=== PATIENT | female | born 2000 | race Caucasian/White ===

== ENCOUNTER 2022-12-30 22:26 | Outpatient (RCR) | payer OTHER, MEDICAID, SELFPAY ==
[2022-12-30 22:37] VITALS: BP 134/75; PULSE 80
[2022-12-30 22:46] VITALS: BP 123/64; PULSE 80
[2022-12-30 23:45] VITALS: BP 123/64; PULSE 80
== END 2023-03-13 12:50 | disposition home or self-care (01) ==
LOC: ANHLDR 22:26
PROVIDERS: PCP Pediatrics; Visit Provider Obstetrics & Gynecology
DX: O99.323 Drug use complicating pregnancy, third trimester (principal); F14.120 Cocaine abuse with intoxication, uncomplicated; Z3A.38 38 weeks gestation of pregnancy
CPT/HCPCS: 59025

== ENCOUNTER 2023-01-12 22:08 | Inpatient (IN) | payer OTHER, MEDICAID, SELFPAY ==
[2023-01-12] VITALS (19 sets, daily range): BP systolic 125–151; BP diastolic 59–101; PULSE 59–140; RESP 18; TEMP 36.6; O2SAT 73–100; BMI 30.9
--- NOTE | 2023-01-12 22:25 | LDADM ---
This patient, Resmha Stephen, was admitted to Labor/Delivery/Recovery 106 on 01/12/23 at 22:08. Plans for labor, pain management and were discussed with patient. Patient/family oriented to hospital policies and general routines including ID bracelet, bed and alarms, visiting hours, pain management, procedures, bathroom and other care routines, personal items, smoking policy, room service/diet and guest tray routines, infant security routines, and visiting hours. Patient/Family are encouraged to report perceived risks to care and to ask questions if they do not understand what they are told or what they should do. See OBIX for further documentation.
[2023-01-12] MEDS: LACTATED RINGERS 1,000 ML 125 ML IV CONT (22:28)
--- NOTE | 2023-01-12 22:29 | WPDHPUPDATE1 ---
History and Physical Update Update Date/Time: 01/12/23 22:29 A 22-year-old 1 at 40 weeks gestation with cocaine abuse concerns. She has tested positive at each visit. She presents in the 1st stage of labor at 9 cm dilation. There is reassuring heart tones. Was 0 continue with expected management, no time for epidural, head is low. History and Physical has been reviewed, including an updated exam of the patient. There are NO changes in the patient's condition. Risks, benefits, and alternatives have been discussed and questions answered. Patient agrees to proceed with procedure.
[2023-01-12 22:47] LABS: Basophils Percent Auto 0.2 % (0.2-1.2); Eosinophils Percent Auto 0.1 % (0-4.4); Hematocrit 31.5 % (37.0-47.0); Immature Granulocyte Absolute 0.06 K/mm3 (0.00-0.031); Immature Granulocyte Percent A 0.5 % (0-0.5); Lymphocytes Absolute Auto 1.32 K/mm3 (0.9-3.2); Lymphocytes Percent Auto 10.2 % (18.3-44.2); Mean Corpuscular HGB Conc 31.7 g/dl (32-36); Mean Corpuscular Hemoglobin 24.3 pg (26-34); Mean Corpuscular Volume 76.5 fl (80-100); Mean Platelet Volume 9.5 fl (7.4-10.4); Monocytes Absolute Auto 0.3 K/mm3 (0.1-0.6); Monocytes Percent Auto 2.5 % (2.6-8.5); Neutrophils Absolute Auto 11.2 K/mm3 (1.3-6.7); Neutrophils Percent Auto 86.5 % (45.5-73.1); Platelet Count Result 262 k/mm3 (150-375); Red Blood Count 4.12 M/mm3 (4.2-5.4); Red Cell Distribution Width 16.8 % (11.5-14.5)
[2023-01-12] MEDS: OXYTOCIN 30 UNITS/NS 500 ML 30 UNITS/500 ML BAG 999 UNITS IV CONT (23:30)
--- NOTE | 2023-01-12 23:38 | PM.OBPRVD ---
OB - Delivery Note Procedure Delivery date: 01/12/23 Procedure: Induction method: None Delivery augmentation: Rupture of Membranes Delivery monitor: External FHT and External Uterine Route of delivery: Episiotomy description: None Laceration Description: Vaginal ( 1st degree, small, 1 cm) Delivery repair: vicryl Specimen: Yes Quantitative Blood Loss (ml): 200 Anesthesia type: None Baby Date of : 01/12/23 Time of : 23:25 Weeks of gestation at delivery: 40 Infant gender: Female Weight (pounds): 7 Weight (ounces): 3 presentation: vertex Placenta delivery description: Spontaneous score one minute: 8 score five minutes: 9
[2023-01-12 23:45] LABS: Amphetamine Screen Urine Negative (Negative); Barbiturate Screen Urine Negative (Negative); Benzodiazepines Screen Urine Negative (Negative); Cannabinoid Screen Urine Negative (Negative); Cocaine Screen Urine Positive (Negative); Methadone Screen Urine Negative (Negative); Opiate Screen Urine Negative (Negative); Phencyclidine Screen Urine Negative (Negative)
[2023-01-13] VITALS (34 sets, daily range): BP systolic 92–141; BP diastolic 43–95; PULSE 55–141; RESP 16–18; TEMP 36.5–37.2; O2SAT 80–100
[2023-01-13] MEDS: OXYTOCIN 30 UNITS/NS 500 ML 30 UNITS/500 ML BAG 125 UNITS IV CONT (00:03)
[2023-01-13] MEDS: IBUPROFEN 600 MG TABLET PO ×3 (01:02→19:50)
[2023-01-13] MEDS: WITCH HAZEL 40 PADS 1 PAD TOPICAL (01:03)
[2023-01-13] MEDS: BENZOCAINE 20% AER SPR (*SP) 56 GM CAN 1 SPRAY TOPICAL (01:03)
--- NOTE | 2023-01-13 02:09 | PC.NURSE ---
Pt admits to using cocaine in the last 72 hours, states she and FOB have been staying in a hotel and don't have housing. [facility] they plan on moving in with FOB parents. [facility] she does not have a job and worries often about having money for food. [facility] she does get link card but was denied money for housing due to insufficient funding on the [facility] end. [facility] she missed her OB appointment because she didn't have transportation. [facility] she knows she messed up but wants to change for the baby. [facility] she has been clean for 2 weeks before but relapsed. [facility] she does not have a good relationship with her mother due to her mother knowing about the cocaine usage. Father of the patient called hospital x2 stating he was on drugs himself and demanding information on his daughter and granddaughter, no information was given.
[2023-01-13 05:54] LABS: Hematocrit 25.2 % (37.0-47.0); Hemoglobin 8.1 g/dL (12.0-15.0)
--- NOTE | 2023-01-13 07:30 | P.PNOB_ITS ---
OB - PN: Subj Subjective Date/time seen: 01/13/23 07:30 Patient comments: no complaints, pain well controlled, incisional pain, tolerating diet and flatus present OB - PN: Obj Data Labs 01/13/23 05:41 Labs: Laboratory Results - last 24 hr 01/12/23 01/12/23 01/13/23 22:27 23:21 05:41 WBC 13.0 H RBC 4.12 L Hgb 10.0 L 8.1 L Hct 31.5 L 25.2 L MCV 76.5 L MCH 24.3 L MCHC 31.7 L RDW 16.8 H Plt Count 262 MPV 9.5 Immature Gran % (Auto) 0.5 Neut % (Auto) 86.5 H Lymph % (Auto) 10.2 L [place] % (Auto) 2.5 L Eos % (Auto) 0.1 Baso % (Auto) 0.2 Lymph # (Auto) 1.32 [place] # (Auto) 0.3 Eos # (Auto) 0.0 Baso # (Auto) 0.0 Abs Immat Gran (auto) 0.06 H Absolute Neuts (auto) 11.2 H Absolute Nucleated RBC 0.0 Nucleated RBC % 0.0 Urine Opiates Screen Negative Urine Methadone Screen Negative Ur Barbiturates Screen Negative Ur Phencyclidine Scrn Negative Ur Amphetamine Screen Negative U Benzodiazepines Scrn Negative Urine Cocaine Screen Positive A U Cannabinoids Screen Negative Blood Type A Positive Antibody Screen Negative OB - PN A/P Plan day: 1 Plan: routine care Comments: No problems, routine care Time Spent With Patient Time: Total time spent is greater than 50% in coordination of care (as documented) at patient's floor/unit and/or counseling patient: Exam Const: General: comfortable, no acute distress and alert Resp: Effort & Inspection: normal respiratory effort Auscultation: no crackles, no rales and no rhonchi Cardio: Rate: regular rate Heart sounds: no click, no murmurs and no rubs GI: Inspection: non-distended GI Palp: No Tenderness to palpation present (GI) Auscultation: normal bowel sounds Other: Incision - CDI Extrem: General: normal to inspection, no pedal edema and no calf tenderness
[2023-01-13] MEDS: DOCUSATE SODIUM 100 MG CAPSULE PO (08:19)
[2023-01-13] MEDS: POLYSACCHARIDE IRON COMPLEX 150 MG CAPSULE PO ×2 (08:19→16:59)
--- NOTE | 2023-01-13 11:30 | PCCCNOTE ---
Addendum entered by Diana Bunch, [facility] 01/25/23 08:37: CC faxed umbilical cord drug screen results to [facility] at [phone]. Addendum entered by Diana Bunch, [facility] 01/17/23 08:45: Baby is ready for discharge, per JODI Palumbo. Spoke with DCFS worker Julio Cesar who reports will come to hospital this morning. Julio Cesar reports pt's mother Bess will take temporary custody of baby. JODI shen. Addendum entered by Diana Bunch, [facility] 01/13/23 13:15: DCFS worker, Julio Cesar Barkley [phone], reports will follow up with pt. at bedside this afternoon. JODI shen. Addendum entered by Daina Bunch, [facility] 01/13/23 12:15: Recvd email from [facility]: Your information has been reviewed and assessed by a Material Scheduler. A child abuse/neglect investigation will be initiated as a result of the information you provided. An Tow Motor Driver will make an attempt to see and assess the child(donny) within the next 24 hours. JODI shen. Original Note: Recvd consult for no housing, no job, and drug use. Met with pt. and pt's FOIsmael Davison at bedside. Pt. tested + during UDS for cocaine. Pt. reports started using cocaine when her dog in July 2022. Pt. reports using from time to time. Baby's UDS also + for cocaine. Baby's umbilical cord screening is pending. Pt. reports she and Saman both lost their jobs and due to no income, they lost their rental. They have been staying in a local hotel during . 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 Pt. reports she, baby, and FOB will be staying with FOB's parents in [place], but does not know the address of their home. FOB sleeping and pt. declined to wake him up to ask him. Pt. reports has necessary baby supplies, already established with [facility] [employer] [place], and states FOB's parents will be supportive. Pt. denies prior [facility] involvement. Housing resources x2, ETOH resources, resources, and job search resources provided to pt. JAY report made online - #[id number]. PtDhaval THOMPSON will likely meet with her at bedside. JODI shen.
[2023-01-13 14:23] LABS: Rapid Plasma Reagin Non-Reactive (NonReactive)
[2023-01-13] MEDS: busPIRone HCL 5 MG TABLET PO (16:59)
--- NOTE | 2023-01-13 17:59 | PC.NURSE ---
Ricky Harrell, [facility] [employer], here to see patient, her number is #[phone]. A copy of her DCFS ID was taken and placed in patient's chart and baby's chart. Julio Cesar was in with the patient until 1812 while the family of the patient was deciding who would be able to take custody. It has been decided that the maternal grandmother (patient's mother) would be the one taking custody when baby is cleared for discharge. RN Spoke with Dr. Hyman earlier and she said that the baby would need to monitored for withdrawal symptoms for 72 hours so the soonest discharge would be MondayJanuary 16. Per Julio Cesar, she had cleared it with her cash applications manager if the patient is discharged before baby, she is able to stay with the baby in the room as a no care bed. Julio Cesar is going to call Diana with Care Coordination and leave a message on her voicemail with the plan of care. Per Julio Cesar, she off on Monday because of the holiday, if baby is discharged Monday then the RN would need to call the [facility] Hotline and say there is a Related Report and they would have another DCFS worker come out and take care of the discharge. *A copy of this note will be placed in the baby's chart as well*
--- NOTE | 2023-01-14 08:25 | PM.OBPNVD ---
OB - PN: Subj Subjective Date/time seen: 01/14/23 08:25 Patient comments: no complaints, pain well controlled and tolerating diet OB - PN: Obj Data Labs 01/13/23 05:41 Labs: Laboratory Results - last 24 hr 01/12/23 22:27 RPR Non-reactive OB - PN A/P Plan day: 2 Plan: routine care Time Spent With Patient Time: Total time spent is greater than 50% in coordination of care (as documented) at patient's floor/unit and/or counseling patient: Exam Const: General: comfortable and no acute distress Resp: Effort & Inspection: normal respiratory effort Auscultation: no rales, no rhonchi and no wheezes Cardio: Rate: regular rate Heart sounds: no click, no murmurs and no rubs GI: GI Palp: Yes Soft to palpation and No Tenderness to palpation present (GI) Auscultation: normal bowel sounds Extrem: General: normal to inspection, no pedal edema and no calf tenderness
[2023-01-14 10:15] VITALS: BP 130/85; PULSE 54; RESP 18; TEMP 36.6; O2SAT 100
[2023-01-14] MEDS: IBUPROFEN 600 MG TABLET PO ×2 (10:15→17:15)
[2023-01-14] MEDS: busPIRone HCL 5 MG TABLET PO ×2 (10:15→17:32)
[2023-01-14] MEDS: POLYSACCHARIDE IRON COMPLEX 150 MG CAPSULE PO ×2 (10:15→17:15)
[2023-01-14 17:26] VITALS: BP 124/65; PULSE 67; RESP 14; TEMP 36.8
[2023-01-14] MEDS: BENZOCAINE 20% AER SPR (*SP) 56 GM CAN 1 SPRAY TOPICAL (18:05)
[2023-01-14] MEDS: WITCH HAZEL 40 PADS 1 PAD TOPICAL (18:05)
[2023-01-16 09:12] VITALS: BP 130/64; PULSE 84; RESP 18; TEMP 36.3; O2SAT 100
== END 2023-01-14 18:00 | disposition home or self-care (01) | DRG 807 ==
LOC: ANHLDR 22:15 → ANHOB2 01-13 02:10
PROVIDERS: Admitting Provider Obstetrics & Gynecology; PCP Pediatrics; Visit Provider Obstetrics & Gynecology
DX: O99.344 Other mental disorders complicating childbirth (principal); Z37.0 Single live birth; Z3A.40 40 weeks gestation of pregnancy; O70.0 First degree perineal laceration during delivery; F14.90 Cocaine use, unspecified, uncomplicated; F41.9 Anxiety disorder, unspecified; F32.A Depression, unspecified
CPT/HCPCS: 36415; 80307; 85014; 85018; 85025; 86592; 86850; 86900; 86901; 88307; A9270; J2590; J7120